=== PATIENT | male | born 1955 | race African-American/Black ===

== ENCOUNTER 2021-09-22 00:46 | Emergency (ER) | payer OTHER, SELFPAY ==
[2021-09-22 00:51] VITALS: BP 168/94; PULSE 81; RESP 18; TEMP 37.1; O2SAT 98; BMI 31.3
--- NOTE | 2021-09-22 01:13 | EX.ED.DYSGE1 ---
HPI History of Present Illness Chief Complaint: Other, Pain/Inj Narrative Narrative: 66-year-old homeless male presenting for evaluation of pain all over. Patient states that he has had pain since he had COVID. He tested positive on the second. He states that his body aches just never went away. He is not had a fever again. He is eating and drinking normally. He is urinating and denies dysuria but states sometimes he cannot hold his urine. He does not have any abdominal pain or flank pain. No constipation or diarrhea. He is not short of breath or having chest pain. He does admit to chronic swelling of the lower extremities which he usually elevates at night. Patient does relate that he threw up on a [employer] bus earlier he said he was motion sick on the bus and threw up all over it. He states that nausea is better now after he got off the bus. He states that he is from [place], but states he also recently had surgery on his abdomen and [place]. He states that every time he went to [place] they told him he did need hernia repair surgery because it was reducible but when he went to [place] and they told him if it was that bad he should have it fixed. He cannot recall how long ago this was. [facility] Medical History Hypertension Home Medications hydrochlorothiazide 50 mg PO DAILY 09/22/21 [History Last Taken Unknown] lisinopril 20 mg PO DAILY 09/22/21 [History Last Taken Unknown] naproxen [Naprosyn] 250 mg PO BID PRN 09/22/21 [History Last Taken Unknown] Allergy/AdvReac Type Severity Reaction Status Date / Time No Known Allergies Allergy Verified 09/22/21 00:48 Surgical History H/O hernia repair Social History Smoking Status: Current every day smoker tobacco type: cigarettes ROS ROS ED Constitutional Constitutional ED: Denies chills or fever(s) Eyes Eyes: Denies blurry vision or diplopia ENT ENT ED: Denies rhinorrhea or sore throat Cardiovascular Cardiovascular: Denies chest pain or palpitations Respiratory/Chest Respiratory/Chest: Reports cough; Denies dyspnea or sputum Gastrointestinal Gastrointestinal: Reports nausea and vomiting; Denies abdominal pain Genitourinary Genitourinary ED: Denies dysuria or hematuria Musculoskeletal Musculoskeletal: Reports myalgias; Denies arthralgias, back pain or neck pain Integumentary Denies rash Neurologic Neurologic: Denies headache(s) or paresthesias EXAM Physical Exam Const Vital Signs: 09/22/21 00:51 09/22/21 00:56 Temperature 98.7 F Temperature Source Temporal Pulse Rate 81 Respiratory Rate 18 Respiratory Effort Normal Respiratory Pattern Normal Blood Pressure 168/94 H Blood Pressure Mean 118 Pulse Ox 98 Oxygen Delivery Method Room Air Positive well nourished and unkempt General Appearance ED: unkempt and NAD HEENT Reports moist mucous membranes Negative for trauma Eyes PERRL and EOMs intact bilaterally General Eye ED: Negative for pale conjunctiva or scleral icterus Neck no lymphadenopathy and supple Chest Wall inspection of chest normal Resp normal respiratory effort and clear to auscultation bilaterally Cardio regular rate and regular rhythm GI normal to inspection, nondistended, normoactive bowel sounds Extremity Extremity Narrative: Mild edema on the bilateral feet. Neuro oriented x3, CN's II-XII intact bilaterally and no sensory deficits noted Sensorium / Orientation: alert Motor Exam: strength 5/5 throughout Psych Appearance: unkempt MDM MDM MDM Narrative Medical decision making narrative: Patient presenting with multiple complaints. He has swollen feet which is chronic and he states he elevates his feet at night for this. I reviewed his history and clinic thank if he had not been to [facility] before and he does have a history of paranoid schizophrenia antisocial personality disorder, schizoaffective disorder, polysubstance abuse disorder. Patient does not report being on any medications. Patient not homicidal or suicidal. He does not admit to any hallucinations. He is unkempt but he is also homeless he does not seem to be a risk to himself or others at this time. I did order some basic lab work and his CBC and CMP are within normal limits. He requested a Covid test, and I counseled him that he had Covid on the second so he likely does not have Covid but he wished to have this done so I ordered one and this was negative. His vital signs are normal. His pulse ox is 98% on room air. He is afebrile. Respiratory rate 18 his pulse is 81. His lungs are clear to auscultation. Abdominal exam is benign. Patient was given Toradol and a liter of IV fluids. EtOH is negative. Drug abuse screen is positive for cocaine. After speaking with the nurse he had reported to me that the patient had told him that he was urinating on the bus and throwing up because of motion sickness and this is why they dropped him off in [place]. I informed him that his work-up is ultimately normal and his Covid test was negative and I feel he can be discharged home. he states he can go to the homeless alf. Impression: 1. Myalgias 2. Lower extremity edema 3. Cocaine abuse Lab Data Attestation: I reviewed the patient's lab results. Labs: Laboratory Results - last 24 hr 09/22/21 09/22/21 09/22/21 01:03 01:03 01:30 WBC 5.2 RBC 4.78 Hgb 13.4 Hct 41.6 MCV 87.0 MCH 28.0 MCHC 32.2 RDW Std Deviation 45.9 H RDW Coeff of [place] 14.2 Plt Count 157 MPV 9.6 Immature Gran % (Auto) 0.200 Neut % (Auto) 62.0 Lymph % (Auto) 22.0 [place] % (Auto) 12.3 H Eos % (Auto) 3.1 Baso % (Auto) 0.4 Absolute Neuts (auto) 3.2 Absolute Lymphs (auto) 1.14 Nucleated RBC % 0 Sodium 143 Potassium 3.6 Chloride 108 H Carbon Dioxide 29.0 Anion Gap 6 BUN 14 Creatinine 1.12 Estim Creat Clear Calc 59.84 Est GFR (MDRD) Af Amer 84 Est GFR (MDRD) Non-Af 69 BUN/Creatinine Ratio 12.5 Glucose 96 Calcium 8.8 Total Bilirubin 0.20 AST 17 ALT 14 L Alkaline Phosphatase 78 Total Protein 6.0 L Albumin 3.1 L Globulin 2.9 Albumin/Globulin Ratio 1.1 Urine Color Urine Clarity Urine pH Ur Specific [place] Urine Protein Urine Glucose (UA) Urine Ketones Urine Occult Blood Urine Nitrite Urine Bilirubin Urine Urobilinogen Ur Leukocyte Esterase Urine RBC Urine WBC Ur Squamous Epith Cells Urine Bacteria Urine Mucus Urine Opiates Screen Urine Methadone Screen Ur Barbiturates Screen Ur Phencyclidine Scrn Ur Amphetamines Screen U Methamphetamin-MDMA U Benzodiazepines Scrn Urine Cocaine Screen U Cannabinoids Screen Ur Drug Screen Comment Ethyl Alcohol < 3.0 09/22/21 09/22/21 01:50 01:50 WBC RBC Hgb Hct MCV MCH MCHC RDW Std Deviation RDW Coeff of [place] Plt Count MPV Immature Gran % (Auto) Neut % (Auto) Lymph % (Auto) [place] % (Auto) Eos % (Auto) Baso % (Auto) Absolute Neuts (auto) Absolute Lymphs (auto) Nucleated RBC % Sodium Potassium Chloride Carbon Dioxide Anion Gap BUN Creatinine Estim Creat Clear Calc Est GFR (MDRD) Af Amer Est GFR (MDRD) Non-Af BUN/Creatinine Ratio Glucose Calcium Total Bilirubin AST ALT Alkaline Phosphatase Total Protein Albumin Globulin Albumin/Globulin Ratio Urine Color Yellow Urine Clarity Clear Urine pH 5.0 Ur Specific [place] 1.025 Urine Protein 30 H Urine Glucose (UA) Normal Urine Ketones 5 H Urine Occult Blood 150 H Urine Nitrite Negative Urine Bilirubin Negative Urine Urobilinogen 1 H Ur Leukocyte Esterase 25 H Urine RBC 10-25 SEEN Urine WBC 0-5 SEEN Ur Squamous Epith Cells 0-5 SEEN Urine Bacteria 1+ Urine Mucus 2+ Urine Opiates Screen NEGATIVE Urine Methadone Screen NEGATIVE Ur Barbiturates Screen NEGATIVE Ur Phencyclidine Scrn NEGATIVE Ur Amphetamines Screen NEGATIVE U Methamphetamin-MDMA NEGATIVE U Benzodiazepines Scrn NEGATIVE Urine Cocaine Screen POSITIVE H U Cannabinoids Screen NEGATIVE Ur Drug Screen Comment Ethyl Alcohol Discharge Plan Triage Chief Complaint: Other, Pain/Inj ED Provider: Madhu Falk Dx/Rx/DC Orders Instructions: ED Peripheral Edema, Bilateral, ED Myalgias Prescriptions: No Action hydrochlorothiazide 50 mg Tablet 50 mg PO DAILY RF: 0 lisinopril 20 mg Tablet 20 mg PO DAILY RF: 0 naproxen [Naprosyn] 250 mg Tablet 250 mg PO BID PRN (Reason: Pain) RF: 0 [facility] [[facility] Provider[facility] - Disposition Disposition: Home, Self Care
[2021-09-22 01:25] LABS: Absolute Lymphocyte Count 1.14 X10^3/uL (0.83-4.51); Absolute Neutrophil Count 3.2 X10^3/uL (2.0-7.7); Basophil# 0.02 X10^3/uL; Basophil% 0.4 % (0-1); Eosinophil# 0.16 X10^3/uL; Eosinophils% 3.1 % (0-5); Hematocrit 41.6 % (40-54); Hemoglobin 13.4 g/dL (13.0-16.5); Lymphocyte # 1.14 X10^3/ul (0.83-4.51); Mean Corp Hgb Conc 32.2 g/dL (32-36); Mean Platelet Vol. 9.6 fl (6.2-12.0); Monocyte# 0.64 X10^3/uL; Monocyte% 12.3 % (0-10); NRBC Flagged by Analyzer 0 % (0-5); Neutrophil # 3.22 X10^3/uL (2.7-7.7); Platelet Count 157 K/mm3 (150-450); RBC Distribution Width CV 14.2 % (11.6-14.6); RBC Distribution Width SD 45.9 fl (35.1-43.9); Red Blood Count 4.78 M/mm3 (4.6-6.2); White Blood Count 5.2 K/mm3 (4.4-11.0)
[2021-09-22] MEDS: 0.9% Normal Saline 1,000 ML 1000 ML IV (01:29)
[2021-09-22] MEDS: Ketorolac 15 MG/ML Vial IV (01:29)
[2021-09-22 01:39] LABS: ALB/GLOB Ratio 1.1 RATIO (0.9-2.4); AST(SGOT) 17 U/L (15-37); Alanine Aminotransfer ALT/SGPT 14 U/L (16-61); Albumin, Serum 3.1 g/dL (3.2-5.0); Alkaline Phosphatase 78 U/L (45-117); Anion Gap 6 (5-15); BUN 14 mg/dL (7-18); BUN/Creat Ratio 12.5 RATIO (10-20); Calcium,Total 8.8 mg/dL (8.5-10.1); Chloride 108 mmol/L (98-107); Creatinine, Serum 1.12 mg/dL (0.70-1.30); EST Glomerular Filtration Rate 69 mL/min (>60); Est Glom Filt Rate - Afr Amer 84 mL/min (>60); Estimated Creatinine Clearance 59.84 ml/min; Globulin 2.9 g/dL (2.2-4.2); Glucose 96 mg/dL (74-106); Potassium 3.6 mmol/L (3.5-5.1); Sodium Level 143 mmol/L (136-145)
[2021-09-22 02:06] LABS: Color, Urine Yellow (Yellow); Glucose, Dipstick Normal (Normal); Ketone-Dipstick 5 mg/dl (Negative); Leukocyte Esterase-Dipstick 25 /ul (Negative); Nitrite-Dipstick Negative (Negative); Occult Blood-Urine 150 /ul (Negative); Protein-Dipstick 30 mg/dl (Negative); Specific Gravity, Urine 1.025 (1.002-1.030); Urine Bilirubin Dipstick Negative (Negative); Urine Clarity Clear (Clear); Urine Urobilinogen 1 mg/dl (Normal)
[2021-09-22 02:10] LABS: Alcohol, Blood (Medical)-Serum < 3.0 mg/dL
[2021-09-22 02:23] LABS: Amphetamine Urine VISTA NEGATIVE (<1000 ng/mL); Barbiturate Urine VISTA NEGATIVE (< 200 ng/mL); Benzodiazepine Urine VISTA NEGATIVE (< 200 ng/mL); Cocaine Urine VISTA POSITIVE (< 300 ng/mL); Ecstacy Urine VISTA NEGATIVE (< 500 ng/mL); Methadone Urine VISTA NEGATIVE (< 300 ng/mL); PCP Urine VISTA NEGATIVE (< 25 ng/mL); THC Urine VISTA NEGATIVE (< 50 ng/mL); Vista UDS pH Range 5
[2021-09-22 02:25] LABS: Bacteria 1+ /hpf (None Seen); Mucous, Urine 2+ /hpf (<or=2+); Red Blood Cells-Urine 10-25 SEEN /hpf (0-5); Squamous Epithelial Cells - UA 0-5 SEEN /hpf (0-5); White Blood Cells 0-5 SEEN /hpf (0-5)
[2021-09-22 03:06] VITALS: BP 165/60; PULSE 78; RESP 18; O2SAT 97
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
== END 2021-09-22 03:06 | disposition home or self-care (01) ==
PROVIDERS: Emergency Provider Student in an Organized Health Care Education/Training Program; Visit Provider Student in an Organized Health Care Education/Training Program
DX: M79.10 Myalgia, unspecified site (principal); F14.10 Cocaine abuse, uncomplicated; R60.0 Localized edema; F17.210 Nicotine dependence, cigarettes, uncomplicated; I10 Essential (primary) hypertension; Z79.899 Other long term (current) drug therapy; Z86.16 Personal history of COVID-19
CPT/HCPCS: 80053; 80307; 81001; 82077; 85025; 87426; 96361; 96374; 99285; J7030; A4216